=== PATIENT | male | born 1965 | race Caucasian/White ===

== ENCOUNTER 2019-05-09 08:58 | Observation (INO) ==
[2019-05-09] MEDS ORDERED: CARDIZEM IV ONE (09:14)
[2019-05-09] MEDS ORDERED: ASPIRIN PO ONE (09:15)
[2019-05-09] MEDS ORDERED: LOPRESSOR IV ONE (09:19)
--- NOTE | 2019-05-09 09:21 | PROVIDER DOCUMENTATION ---
HPI-Chest Pain - General Chief Complaint: Chest Pain Stated Complaint: CP HEART PT Time Seen by Provider: 05/09/19 09:09 Source: patient Allergies/Adverse Reactions: Patient Allergies Allergy/AdvReac Type Severity Reaction Status Date / Time cephalexin monohydrate * Allergy RASH Verified 05/09/19 09:49 [From Keflex] Penicillins Allergy FATIGUE Verified 05/09/19 09:49 Home Medications: Home Medication List Medication Instructions Recorded Confirmed Last Taken Type ATORVAstatin [Lipitor] 20 mg PO DAILY 03/16/12 05/09/19 05/09/19 History Carvedilol C.r. [Coreg Cr] 10 mg PO DAILY 03/16/12 05/09/19 05/09/19 History Lisinopril 10 mg PO DAILY 03/16/12 05/09/19 05/09/19 History Spironolactone 1 tab PO DAILY 05/09/19 05/09/19 05/09/19 History - History of Present Illness-CP Nature of Presenting Problem: Patient is a 53 year old white male with history of CAD (S/P [place]),chronic atrial fibrillation, and diabetes who presents with rapid irregular pulse with 3/10 substernal chest tightness- onset at rest about 0745am today. Followed by Dr. REYNOLD Riley and Dr. Sheikh. Location: reports: substernal Chest Pain Radiation: reports: no radiation Quality of Pain: reports: aching, pressure Severity in ED: mild Onset/Duration: abrupt Timing: still present Modifying Factors: improves with: nothing Associated Symptoms: denies: diaphoresis Nitro Today/Relief: no nitro taken today Aspirin Treatment Today: no aspirin today Prior Chest Pain/Cardiac Workup: reports: heart attack Similar Symptoms Previously?: Yes Review of Systems - Adult - REVIEW OF SYSTEMS - ADULT Constitutional: denies: chills, fever Eyes: reports: no symptoms reported Ears, Nose, Mouth & Throat: reports: no symptoms reported Cardiovascular: reports: chest pain, irregular heart rate, palpitations Respiratory: reports: no symptoms reported Gastrointestinal: reports: no symptoms reported Genitourinary: reports: no symptoms reported Musculoskeletal: reports: no symptoms reported Integumentary: reports: no symptoms reported Neurological: reports: no symptoms reported Psychiatric: reports: no symptoms reported Endocrine: reports: no symptoms reported Hematologic/Lymphatic: reports: no symptoms reported Allergic/Immunologic: reports: no symptoms reported All Other Systems: Reviewed and Negative Past History - Adult - PAST MEDICAL HISTORY-ADULT Review of Records: reports: Old Records Reviewed, Nursing Assessment Review, Medications Reviewed, Social history reviewed & non-contributory. Major Childhood Illnesses: reports: denies history Cardiovascular: reports: HTN, hyperlipidemia Respiratory: reports: COPD Gastrointestinal: reports: denies history Obstetrical/Gynecological: reports: denies history Genitourinary: reports: denies history Musculoskeletal: reports: denies history Neurological: reports: denies history Psychiatric: reports: denies history Endocrine/Immune: reports: denies history Other Conditions: reports: denies history - PRIOR SURGERIES/PROCEDURES Surgical/Procedure History: reports: reviewed, not pertinent - IMMUNIZATION STATUS Childhood Immunizations: See Nurse Assessment Flu Vaccine: See Nurse Assessment - FAMILY HISTORY Family History: reviewed, not pertinent - SOCIAL HISTORY Smoking: denies Substance Use: denies Alcohol Use Frequency: occasionally Living Situation: family Physical Exam-General - CONSTITUTIONAL General Appearance: alert, no apparent distress, other (nondiaphoretic) - EYES Eyes: other (clear) - HEAD, EARS, NOSE, MOUTH & THROAT HENMT: moist mucous membranes, normal ENT inspection - NECK Neck: supple - RESPIRATORY Respiratory: lungs clear - CARDIOVASCULAR Cardiovascular: tachycardia, irregularly irregular - GASTROINTESTINAL (ABDOMEN) Abdominal Exam: normal bowel sounds, non tender, soft - LYMPHATIC Lymphatic: no adenopathy - MUSCULOSKELETAL Back Exam: normal inspection, no CVA tenderness Extremity: normal range of motion, non-tender - SKIN Integumentary: normal color, normal turgor - NEUROLOGIC Neurologic: grossly normal, no motor/sensory deficits - PSYCHIATRIC Psych/Mental Status: anxious - HEART Score HEART Score: History: Moderately Suspicious HEART Score: ECG: Non-Specific Repolarization Disturbance/LBBB/PM HEART Score: Age: 45-65 Years HEART Score: Risk Factors for Atherosclerotic Disease: > or = 3 Risk Factors or History of Atherosclerotic Disease HEART Score: Troponin: < or = Normal Limit Total HEART Score:: 5 Progress - PLAN OF CARE/RESULTS Progress/Plan/Lab Results: Vital Signs - 8 hr 05/09/19 09:08 05/09/19 09:12 05/09/19 09:16 Temperature 97.5 F L Pulse Rate 125 H 133 H 144 H Respiratory Rate 20 15 23 Blood Pressure 126/87 102/75 99/77 O2 Sat by Pulse Oximetry 97 05/09/19 09:20 05/09/19 09:26 05/09/19 09:28 Temperature Pulse Rate 142 H 142 H 123 H Respiratory Rate 21 20 20 Blood Pressure 111/82 117/85 111/75 O2 Sat by Pulse Oximetry 95 96 96 05/09/19 09:30 05/09/19 09:32 05/09/19 09:33 Temperature Pulse Rate 128 H 116 H 100 H Respiratory Rate 21 19 16 Blood Pressure 125/101 107/71 123/78 O2 Sat by Pulse Oximetry 95 94 L 94 L 05/09/19 09:36 05/09/19 09:38 05/09/19 09:40 Temperature Pulse Rate 93 H 92 H 96 H Respiratory Rate 14 15 15 Blood Pressure 113/66 98/73 119/80 O2 Sat by Pulse Oximetry 96 97 97 05/09/19 09:45 05/09/19 09:51 05/09/19 10:00 Temperature Pulse Rate 98 H 87 96 H Respiratory Rate 13 18 16 Blood Pressure 107/77 O2 Sat by Pulse Oximetry 98 97 98 05/09/19 10:01 05/09/19 10:11 Temperature Pulse Rate 97 H 87 Respiratory Rate 15 16 Blood Pressure 109/84 121/69 O2 Sat by Pulse Oximetry 98 97 Laboratory Results - last 24 hr 05/09/19 05/09/19 05/09/19 09:19 09:19 09:19 WBC 8.72 RBC 4.63 L Hgb 15.2 Hct 44.0 MCV 95.0 MCH 32.8 H MCHC 34.5 RDW Std Deviation 12.3 Plt Count 181 MPV 10.9 H Immature Gran % (Auto) 0.8 H Neut % (Auto) 56.9 Lymph % (Auto) 28.8 [place] % (Auto) 8.4 Eos % (Auto) 4.5 Baso % (Auto) 0.6 Immature Gran # (Auto) 0.07 H Neut # (Auto) 4.97 Lymph # (Auto) 2.51 [place] # (Auto) 0.73 H Eos # (Auto) 0.39 Baso # (Auto) 0.05 Sodium 140 Potassium 4.4 Chloride 106 Carbon Dioxide 19 L Anion Gap 15 BUN 24 H Creatinine 1.0 Estimated GFR/1.73 m2 > 60 BUN/Creatinine Ratio 24 Glucose 228 H Calculated Osmolality 291 Calcium 9.2 Magnesium 1.6 Total Bilirubin 0.21 AST 24 ALT 34 Alkaline Phosphatase 101 Creatine Kinase 142 Troponin T Total Protein 6.2 L Albumin 3.8 Globulin 2.4 Albumin/Globulin Ratio 1.6 05/09/19 09:19 WBC RBC Hgb Hct MCV MCH MCHC RDW Std Deviation Plt Count MPV Immature Gran % (Auto) Neut % (Auto) Lymph % (Auto) [place] % (Auto) Eos % (Auto) Baso % (Auto) Immature Gran # (Auto) Neut # (Auto) Lymph # (Auto) [place] # (Auto) Eos # (Auto) Baso # (Auto) Sodium Potassium Chloride Carbon Dioxide Anion Gap BUN Creatinine Estimated GFR/1.73 m2 BUN/Creatinine Ratio Glucose Calculated Osmolality Calcium Magnesium Total Bilirubin AST ALT Alkaline Phosphatase Creatine Kinase Troponin T < 0.010 Total Protein Albumin Globulin Albumin/Globulin Ratio Orders Category Date Time Status Admit - [facility] Routine AdmDCTranf 05/09/19 11:55 Active Activity - Strict Bedrest ORDERED Care 05/09/19 11:55 Active Cardiac Monitoring DIRECTED Care 05/09/19 09:15 Active Nursing- MD Consult Request ROUTINE Care 05/09/19 12:36 Ordered Resuscitation Status Routine Care 05/09/19 11:55 Ordered Vital Signs Order Q 4-HR ASSESS Care 05/09/19 11:55 Active Z-Document. for Tele Applied ORDERED Care 05/09/19 11:56 Active Physician/Provider Consults Routine Cons 05/09/19 12:35 Ordered NPO Diet 05/09/19 11:57 Active CBC WITH ELECTRONIC DIFF [HEME] Stat Lab 05/09/19 09:19 Completed CK PROFILE [SP CHEM] Q4H Lab 05/09/19 13:00 Ordered CK PROFILE [SP CHEM] Q4H Lab 05/09/19 17:00 Ordered CK PROFILE [SP CHEM] Q4H Lab 05/09/19 21:00 Ordered CK PROFILE [SP CHEM] Stat Lab 05/09/19 09:19 Completed CMP [COMPREHENSIVE METABOLIC PANEL] [CHEM] Stat Lab 05/09/19 09:19 Completed MAGNESIUM [CHEM] Stat Lab 05/09/19 09:19 Completed TROPONIN T Q4H Lab 05/09/19 13:00 Ordered TROPONIN T Q4H Lab 05/09/19 17:00 Ordered TROPONIN T Q4H Lab 05/09/19 21:00 Ordered TROPONIN T Stat Lab 05/09/19 09:19 Completed Aspirin Med 05/09/19 09:15 Discontinued 324 mg PO NOW ONE Diltiazem [Cardizem] Med 05/09/19 09:14 Discontinued 15 mg IV NOW ONE Metoprolol [Lopressor] Med 05/09/19 09:19 Discontinued 2.5 mg IV NOW ONE Oxygen Device Stat Oth 05/09/19 09:15 Active Pulse Oximetry Stat Oth 05/09/19 09:17 Active Telemetry [OM.EQ] Routine Oth 05/09/19 11:55 Active EKG [EKG] Stat Ther 05/09/19 09:14 Draft EKG [EKG] Stat Ther 05/09/19 09:36 Draft delay in care: cardiac enzymes and CMP are not reported, charge nurse notified of problem Result Diagrams: 05/09/19 09:19 05/09/19 09:19 - REASSESSMENT Reassessment #1 Time Reassessed: 09:30 Status: improving Reassessment Comment: chest pain is now gone after giving IV Cardizem with improved heart rate - CONSULTS/PCP/HOSPITALIST Notification #1 *Consult/PCP/Hospitalist*: Time Discussed: 11:45 Consult Disposition: Admit Departure - Departure Date of Disposition Decision: 05/09/19 Time of Disposition Decision: 12:38 DIAGNOSIS: Atrial fibrillation with RVR Chest pain Qualifiers: Chest pain type: unspecified Qualified Code(s): R07.9 - Chest pain, unspecified CAD (coronary artery disease) Qualifiers: Coronary Disease-Associated Artery/Lesion type: unspecified vessel or lesion type [place] vs. transplanted heart: unspecified whether circle or transplanted heart Associated angina: angina presence unspecified Qualified Code(s): I25.10 - Atherosclerotic heart disease of circle coronary artery without angina pectoris Disposition: ADMITTED INPATIENT 09 Certified Medical Emergency: Emergent Condition: Stable Referrals and Follow-Ups: April Riley MD [Primary Care Provider] - - Critical Care Note This patient required my direct & personal management of CC.: No Attestation - Physician/ JEFFREY Attestation Patient care was provided by Advanced Practice Provider:: No The physician spent face to face time with patient:: Yes Advanced Practice Provider documentation review:: Supervising physician onsite and consulted in the evaluation and care of this patient. The physician did have a face to face encounter with the patient.
--- NOTE | 2019-05-09 09:26 | EKG Report ---
Test Performed on : 05/09/2019 09:03:54 AM Test Reason : cp,tachycardia Blood Pressure : / mmHG Vent. Rate : 134 BPM Atrial Rate : 113 BPM P-R Int : 000 ms QRS Dur : 152 ms QT Int : 362 ms P-R-T Axes : 000 -18 134 degrees QTc Int : 540 ms Atrial fibrillation. with rapid ventricular response. Left bundle branch block Abnormal ECG When compared with ECG of 03-FEB-2019 12:07, Atrial fibrillation. has replaced Ectopic atrial rhythm. T wave inversion no longer evident in Inferior leads Unconfirmed Result
[2019-05-09 09:43] LABS: BASO# 0.05 X1000 (0.0-0.2); BASO% 0.6 % (0.0-0.8); EOS# 0.39 X1000 (0.0-0.7); EOS% 4.5 % (0.0-10.0); HEMOGLOBIN 15.2 g/dL (14.0-18.0); IMM GRAN# 0.07 X1000 (0.0-0.04); IMM GRAN% 0.8 % (0.0-0.5); LYMPH# 2.51 X1000 (1.2-3.4); LYMPH% 28.8 % (20.5-51.1); MCH 32.8 PG (27-31); MCHC 34.5 g/dL (33-37); MONO# 0.73 X1000 (0.11-0.59); MONO% 8.4 % (1.7-9.3); MPV 10.9 FL (7.4-10.4); NEUT# 4.97 X1000 (1.4-6.5); NEUT% 56.9 % (42.2-75.2); PLT 181 X1000 (130-400); RBC 4.63 XMIL (4.7-6.1); RDW 12.3 % (11.5-14.5); WBC 8.72 X1000 (4.8-10.8)
--- NOTE | 2019-05-09 09:55 | EKG Report ---
Test Performed on : 05/09/2019 09:41:22 AM Test Reason : pain Blood Pressure : / mmHG Vent. Rate : 098 BPM Atrial Rate : 111 BPM P-R Int : 000 ms QRS Dur : 168 ms QT Int : 404 ms P-R-T Axes : 000 -42 124 degrees QTc Int : 515 ms Atrial fibrillation. Left axis deviation Left bundle branch block Abnormal ECG When compared with ECG of 09-MAY-2019 09:03, (Unconfirmed) No significant change was found Unconfirmed Result
[2019-05-09 11:14] LABS: AGAP 15; ALB/GLOB RATIO 1.6; ALBUMIN 3.8 g/dL (3.5-5.0); ALKALINE PHOSPHATASE 101 U/L (32-122); BUN 24 mg/dL (8-22); CALCIUM 9.2 mg/dL (8.8-10.2); CHLORIDE 106 mmol/L (98-107); CK PROFILE 142 U/L (24-204); COSMO 291; ESTIMATED GFR > 60; GLUCOSE 228 mg/dL (70-104); GOT 24 U/L (10-34); GPT 34 U/L (10-44); POTASSIUM 4.4 mmol/L (3.5-5.1); SODIUM 140 mmol/L (136-145); TCO2 19 mmol/L (25-35); TOTAL BILIRUBIN 0.21 mg/dL (0.20-1.00); TOTAL PROTEIN 6.2 g/dL (6.3-8.3)
--- NOTE | 2019-05-09 16:24 | EKG Report ---
Test Performed on : 05/09/2019 2:05:24 PM Test Reason : CP Blood Pressure : / mmHG Vent. Rate : 052 BPM Atrial Rate : 052 BPM P-R Int : 186 ms QRS Dur : 166 ms QT Int : 468 ms P-R-T Axes : 034 -29 -25 degrees QTc Int : 435 ms Sinus bradycardia. Left bundle branch block Abnormal ECG When compared with ECG of 09-MAY-2019 09:41, (Unconfirmed) Sinus rhythm. has replaced Atrial fibrillation. Vent. rate has decreased BY 46 BPM T wave inversion now evident in Inferior leads T wave amplitude has decreased in Anterior leads QT has shortened Unconfirmed Result
--- NOTE | 2019-05-09 16:41 | CARDIOLOGY CONSULTATION ---
DATE: 05/09/2019 HISTORY OF PRESENT ILLNESS: This is a 53-year-old gentleman with a history of cardiomyopathy and history of heart failure in the past is admitted. This morning he noticed rapid pulse associated with chest tightness while he was at home. This happened around 7 o'clock this morning. He had taken his morning medications of Coreg and lisinopril. He was noted to be in atrial fibrillation. Was given IV beta cuong and Cardizem in the emergency room around 9 o'clock and subsequently around 2 p.m. he had on the telemetry 6 to 7 second pause with bradycardia. He was otherwise asymptomatic. Patient is subsequently admitted. Prior to this episode, he had been well. He had been taking his medications. He did not complain of any exertional chest pain. There is no orthopnea, paroxysmal nocturnal dyspnea. REVIEW OF SYSTEM: A 14-point review of systems was done. GI System: There is no history of nausea, vomiting, or diarrhea. There is no history of hematemesis or melena. Central nervous system: No focal weakness to suggest a CVA, TIA. PAST MEDICAL HISTORY: 1. Cardiomyopathy, ejection fraction in 2008 was 38% with normal coronary arteries. Subsequent ejection fraction 2014 and 2017 revealed normalization of his ejection fraction. In 2017 his echocardiogram revealed ejection fraction of 50 to 55%. 2. Hypertension. 3. Hyperlipidemia. 4. Metabolic syndrome. 5. COPD. 6. Abnormal EKG with left bundle branch block. HOME MEDICATIONS: Include atorvastatin 10, Coreg 10, lisinopril 20, spironolactone 25. ALLERGIES: He is allergic to cephalexin and penicillin. PHYSICAL EXAMINATION: Vital Signs: Blood pressure was 142/75, pulse rate 50. Cardiovascular system: Jugular venous pressure was normal. First and second heart sounds were normal. There is no S3 gallop. Respiratory System: Normal air entry. There are no crepitations or rhonchi. Abdomen: Soft, nontender. There was no guarding or rigidity. Bowel sounds were heard. Central nervous system: Alert and oriented. Was moving all 4 extremities. Extremities: Examination of extremities revealed no pedal edema. HEENT: Atraumatic, normocephalic. Pupils were equal and reacting to light. LABORATORY: Sodium 140, potassium 4.4, BUN 24, creatinine 1.0. Cardiac enzymes were negative. Hematology: WBC 8.7, hemoglobin 15.2, hematocrit 44, platelet count 181,000. Head CT was unremarkable. Chest x-ray was negative. ASSESSMENT AND PLAN: Mr. Cayden Stephenson is a 53-year-old gentleman with a history of nonischemic cardiomyopathy in the past, diagnosed in 2008, subsequent normalization of his ejection fraction to 50 to 55% in 2017, has history of hypertension, hyperlipidemia, COPD, had palpitations and chest discomfort this morning. When he came to the emergency room, was noted to be in atrial fibrillation. He had taken Coreg this morning and received also IV Cardizem and Lopressor. Subsequently 4 hours later, at around 2 p.m. he had an asymptomatic episode of significant bradyarrhythmia and a sinus pause of 6 to 7 seconds. He was not on a Cardizem drip. His cardiac enzymes were negative. He is otherwise not complaining of chest pain. This morning when he had atrial fibrillation he had complained of chest pain. RECOMMENDATIONS: 1. We will get an echocardiogram to assess cardiac and valvular function. 2. He has an old left bundle branch block. We will set him up to undergo a Lexiscan Cardiolite stress test to rule out ischemia. 3. As far as his medications are concerned, would recommend continuing his lisinopril, lipid- lowering agents, and spironolactone which he has been taking for his cardiomyopathy. 4. He was on Coreg which he had taken this morning. However, when he came in, he was noted to have atrial fibrillation. This is the first time he is recorded to have atrial fibrillation that I know of. I do not have other records from Dr. Riley's office. He is currently in sinus rhythm following his medications and the Cardizem and beta-blockers, which he received in the ER. He had an episode of 6 to 7 second pause. I suspect that is secondary to medications. Regardless, would at the present time avoid beta-blockers. If his echocardiogram and stress test are unremarkable he needs to be set up for a 30 day monitor to make sure there is no significant ayana arrhythmias ongoing. 5. As far as anticoagulation therapy is concerned, his CHADS-VASc score is elevated. Given his cardiomyopathy, history of heart failure, and hypertension, needs to be anticoagulated at discharge for stroke prophylaxis. Thank you for the consult. cc: MD Nhan Butler MD
[2019-05-09] MEDS: LOVENOX SUBQ SCH (22:08)
--- NOTE | 2019-05-10 05:26 | HISTORY AND PHYSICAL ---
CHIEF COMPLAINT: Chest pressure and palpitations this morning. HISTORY OF PRESENT ILLNESS: He is a 53-year-old white male came to the emergency room. In fact, he had an appointment in my office today, doing well, and fixing to have a coffee. A 1 hour history of chest pressure and palpitations. EKG showed atrial fibrillation with underlying left bundle, looks like a wide complex tachycardia. The patient was given Cardizem, and had a sinus pause converted into sinus. He has been admitted to the hospital in telemetry for new onset of atrial fibrillation. Dr. Lofton was consulted. The patient was seen before by Dr. Sheikh. He has been scheduled for rule out structural heart disease. PAST MEDICAL HISTORY: Abnormal EKG with left bundle. Allergic rhinitis. COPD. Diastolic heart failure. Last EF is 50%. Left heart catheterization was negative, metabolic syndrome, hyperlipidemia, hypertension, and hyperuricemia. PAST SURGICAL HISTORY: None. MEDICATIONS: 1. Aldactone 25 daily. 2. Coreg 12.5 b.i.d. 3. Lopid 600 p.o. b.i.d. 4. Metformin 500 1 tablet b.i.d. 5. Lisinopril 20 mg daily. ALLERGIES: Penicillin. SOCIAL HISTORY: . No children. Disabled. Living in [place]. Smoking half a pack a day since age 18. No alcohol. FAMILY HISTORY: Mother is healthy. Father in his sleep with a diagnosis of Pickwickian syndrome and diabetes. HEALTH MAINTENANCE: Influenza vaccine in March of 2018. Last physical in June of 2018. REVIEW OF SYSTEMS: HEENT: No headache. No vision problems. No earache. No sore throat. Neck: No goiter. No lymphadenopathy. No bruit. Cardiopulmonary: Chest pressure and palpitations. No PND. No orthopnea. No swelling of feet. GI: No nausea, vomiting, or abdominal pain. : No history of hesitancy, frequency, dysuria, and no swelling of legs. No joint pain. Neurologic: No focal symptoms or weakness. PHYSICAL EXAMINATION: VITAL SIGNS: Temperature of 97 and pulse 52. Vitals are stable at 99%. Weight 224 pounds. HEENT: Atraumatic, normocephalic. Pupils equal and reactive to light. TMs are normal. Nose and throat within normal limits. NECK: Supple. No lymphadenopathy. No goiter. CHEST: Bilateral air entry. HEART: Sounds are regular. No murmur. ABDOMEN: Belly is soft, obese, and nontender. Good bowel sounds. No peripheral edema or cyanosis. No obvious neurological deficits. INVESTIGATIONS: White cell count 8.7, hematocrit 44, and platelets 181,000. Sodium 140, potassium 4.4, BUN 24, creatinine 1.0, and glucose 228. Cardiac enzymes are normal. Repeat EKG normal sinus bradycardia with left bundle. ASSESSMENT AND PLAN: 1. A 53-year-old white gentleman admitted to the hospital with atrial fibrillation with underlying left bundle, chest pressure, ruled out. Follow up on serial cardiac enzymes. Scheduled for echo and a stress test. 2. Hyperlipidemia on Lipitor. 3. CHF. Diastolic heart failure, improving. Continue on Coreg, lisinopril, Aldactone, and aspirin. 4. DVT prophylaxis with Lovenox. 5. Prediabetic. Got better, off metformin after losing weight. 6. Tobacco abuse. Recommendations to quit smoking. 7. Initiate vaccination protocol prior to the discharge. 8. Apparently, patient had a similar episode in January. At that time, it was attributed to dehydration. Check the lipid profile, and follow up on the pending labs. I appreciated Cardiology consult. cc: Nhan Riley MD MTDD
[2019-05-10 06:22] LABS: CHOLESTEROL 173 mg/dL (0-200); HDL 26 mg/dL (35-55); TRIGLYCERIDES 482 mg/dL (39-160)
--- NOTE | 2019-05-10 07:48 | Diag Imaging Result Doc PS360 ---
EXAM: CHEST-2 VIEWS HISTORY: hypoxia TECHNIQUE: Two views COMPARISON: 02/03/2019 FINDINGS: The lungs are well expanded. The heart is not enlarged. The vessels are not distended. There are no infiltrates. No pleural effusions. IMPRESSION: No acute abnormality. Electronically signed by Beni Hutchison 05/10/2019 7:45 AM
--- NOTE | 2019-05-10 08:16 | EKG Report ---
Test Performed on : 05/10/2019 06:37:40 AM Test Reason : cp Blood Pressure : / mmHG Vent. Rate : 058 BPM Atrial Rate : 058 BPM P-R Int : 190 ms QRS Dur : 172 ms QT Int : 506 ms P-R-T Axes : 041 -20 010 degrees QTc Int : 496 ms Sinus bradycardia. Left bundle branch block Abnormal ECG Confirmed by Osvaldo VILLEGAS, P.J.M ([id number]) on 05/10/2019 5:40:12 PM
--- NOTE | 2019-05-10 09:09 | ECHO REPORT ---
ORDER DATE: 05/09/2019 INTERPRETING PHYSICIAN: Jeffrey Edward MD. INDICATIONS: Cardiomyopathy, atrial fibrillation. M-MODE MEASUREMENTS: Left ventricle end diastole: 6.2 cm. Left ventricle end systole: 5.0 cm. Posterior wall: 1.1 cm. Interventricular septum: 1.1 cm. Left atrium: 4.0 cm. Aortic diameter: 3.3 cm. SUMMARY OF 2-DIMENSIONAL IMAGIN. The study is really difficulty. The left ventricular chamber appears to be moderately enlarged to significantly enlarged. The global ejection fraction is moderately impaired estimated at 40% to 45%. There is atypical contractility of the interventricular septum suggesting left bundle branch block. 2. There is probably borderline concentric LVH. 3. The aortic valve looks normal. Color flow mapping unremarkable. 4. The mitral valve looks normal. Color flow mapping indicates minimal degree of regurgitation. 5. Pulse wave Doppler of mitral inflow shows "normal E/A ratio." 6. Tissue Doppler of septal and lateral mitral annulus averages 6 cm. 7. The left atrial pressure may be elevated. The left atrium is mildly enlarged. 8. The right-sided chambers appear to be normal. 9. The pulmonic valve is unremarkable. 10.The tricuspid valve shows mild degree of regurgitation. 11.Inferior vena cava is not dilated. 12.Pulmonary pressure is estimated at 30 mmHg. 13.There is no pericardial effusion, no mass or thrombus. SUMMARY: This study shows: 1. Moderately enlarged left ventricle with moderately decreased systolic function, ejection fraction of 40% to 45% with atypical contractility of the interventricular septum. 2. Probably normal diastolic function. 3. No evidence of any significant valvular abnormality. 4. Pulmonary pressure is estimated 30 mmHg. Clinical correlation is recommended. cc: MD Lucio Puentes MD Jagan Reddy, MD
[2019-05-10] MEDS ORDERED: LEXISCAN ONE (09:46)
[2019-05-10] MEDS: ALDACTONE PO SCH (11:28)
[2019-05-10] MEDS: LIPITOR PO SCH (11:28)
[2019-05-10] MEDS: PRINIVIL PO SCH (11:28)
[2019-05-10] MEDS: COREG CR PO SCH (11:29)
--- NOTE | 2019-05-10 13:48 | Diag Imaging Result Document ---
PROCEDURE NAME: MYOCARDIAL PERF SCAN, STR/REST - 05/10/2019 LEXISCAN CARDIOLITE STRESS TEST: Baseline electrocardiogram revealed normal sinus rhythm, left bundle branch block. Lexiscan was infused per standard protocol. There was no chest pain. Stress electrocardiogram was nondiagnostic. Left ventricle was dilated. There was large size, severe grade, fixed defect in the inferior wall and inferoapical wall suggestive of infarct or scar. There is also a fixed defect noted in the anteroseptal wall. There is no evidence of ischemia. Left ventricular ejection fraction by gated SPECT was 45%. This is a cardiomyopathy picture. There is no evidence of ischemia. CONCLUSIONS: 1. No chest pain. 2. Nondiagnostic stress electrocardiogram. Baseline left bundle branch block. 3. Myocardial perfusion images revealed a cardiomyopathy picture. There is no evidence of ischemia. There is a large size fixed defect in the inferior wall, in the inferoapical wall and in the anteroseptal wall. This patchy defect is suggestive of a cardiomyopathy picture. 4. Left ventricular ejection fraction by gated SPECT was 45%. There is global hypokinesis. Left ventricle was dilated. cc: Lucio Lofton MD
[2019-05-10] MEDS: LOVENOX SUBQ SCH (20:30)
--- NOTE | 2019-05-11 05:50 | PROGRESS NOTE ---
DATE: 05/10/2019 SUBJECTIVE: The patient is better. No palpitations. No chest pain. He has remained in sinus. He is waiting to get a stress test. OBJECTIVE: Vital signs: On examination, temp is 98 degrees, pulse 67, blood pressure is stable. HEENT: Within normal limits. Chest: Clear. Cardiovascular: Heart sounds are regular. Abdomen: Belly is soft, nontender. Neurologic: No obvious deficits. INVESTIGATIONS: Cardiac enzymes were negative. Triglycerides 482, cholesterol 173, HDL 26. ASSESSMENT AND PLAN: 1. Paroxysmal atrial fibrillation, currently in sinus. 2. Left bundle branch block. 3. Hypertensive heart disease. 4. Prediabetes. 5. Metabolic syndrome. 6. Dyslipidemia. 7. Ongoing tobacco abuse. Chest x-ray stable. Waiting for echo report and stress test. The patient is in sinus and will follow up on the reports. Based on that, further recommendations will be followed. LEVEL OF DOCUMENTATION: 25 minutes. cc: Nhan Riley MD
[2019-05-11] MEDS: ALDACTONE PO SCH (09:28)
[2019-05-11] MEDS: COREG CR PO SCH (09:28)
[2019-05-11] MEDS: PRINIVIL PO SCH (09:28)
[2019-05-11] MEDS: LIPITOR PO SCH (09:28)
[2019-05-11 11:41] VITALS: BP 126/76
[2019-05-11] MEDS ORDERED: PREVNAR 13 IM ONE (14:06)
[2019-05-11] MEDS ORDERED: FLU VACCINE IM ONE (14:06)
--- NOTE | 2019-05-12 07:36 | DISCHARGE SUMMARY ---
ADMISSION DATE: 05/09/2019 DISCHARGE DATE: 05/11/2019 DISCHARGING DIAGNOSES: 1. Paroxysmal atrial fibrillation. 2. Nonischemic cardiomyopathy due to hypertension. Ejection fraction is 45%. SECONDARY DIAGNOSES: 1. Left bundle-branch block. 2. Tobacco abuse. 3. Prediabetic/type 2 diabetes, diet control, A1c 5.8. 4. Allergic rhinitis. 5. Chronic obstructive pulmonary disease. 6. Hyperlipidemia. 7. Hyperuricemia. CONSULTS: Dr. Lofton. PROCEDURES: 1. Myocardial perfusion scan reported no chest pain, nondiagnostic EKG. No evidence of ischemia, large-sized inferior wall defects, with EF of 45%, dilated left ventricle with global hypokinesis. 2. Echocardiography report: Moderate enlarged left ventricle. End-diastolic is 62 mm. EF is about 45%. Diastolic dysfunction. Mild pulmonary artery pressure increasing to 30 mm. BRIEF HISTORY: Please see the H and P that was done on the day of admission. In brief, he is a 53-year-old white gentleman with the above problems, who came in with palpitations, chest tightness. He was converted with Cardizem. He had wide-complex tachycardia. HOSPITAL COURSE: He was ruled out for HI by serial cardiac enzymes. Dr. Lofton was consulted. Apparently, he had normal coronary arteries in the past in [address] Luis. Further workup revealed etiology is nonischemic cardiomyopathy. LABORATORY DATA: CBC: White cell count 8.7, hematocrit 44, platelets 181,000. Sodium 140, potassium 4.4, chloride 106, BUN 24, creatinine 1.0, glucose 228. Magnesium 1.6. Cardiac enzymes were negative. ProBNP 478. Triglycerides 482, cholesterol 173, HDL 26. PLAN: The patient is anxious to go home. I discussed the patient with the following plan: 1. Influenza vaccine and pneumococcal vaccine was initiated prior to the discharge. 2. Quit smoking. 3. Diabetes diet control, lost a lot of weight, and lipid load increased to 40. His triglycerides are high, and down the line, we will add Vascepa or Lovaza. 4. Aspirin 81 mg daily, Aldactone 25 daily, lisinopril 10 daily, Coreg 10 daily, and if she continues to have intermittent tachycardia, will arrange outpatient 30-day loop monitor, and follow up in my office in 10 days. cc: MD Dr. Aguilar Carlton
== END 2019-05-11 15:15 | disposition home or self-care (01) ==
LOC: 1N 08:58 → ED 08:58
PROVIDERS: ADMIT Internal Medicine; ATTEND Internal Medicine